=== PATIENT | male | born 1985 | race Caucasian/White ===

== ENCOUNTER 2021-12-13 12:27 | Emergency (ER) | payer OTHER ==
[~2021-12-13] VITALS: Ht 170.2 cm; Wt 79.4 kg
[2021-12-13 12:50] VITALS: BP_SYST 140
[2021-12-13] MEDS ORDERED: HYDR-3917 PO (14:56)
[2021-12-13] MEDS ORDERED: IBUP-1971 PO (14:56)
[2021-12-13] MEDS ORDERED: KETOROLAC TROMETHAMINE 60 MG/2 ML VIAL IM ONE (15:30)
[2021-12-13 15:55] VITALS: BP_SYST 140
== END 2021-12-13 15:55 | disposition home or self-care (01) ==
LOC: SED 12:27
DX: S63.91XA Sprain of unspecified part of right wrist and hand, initial encounter (principal); W19.XXXA Unspecified fall, initial encounter; Y93.89 Activity, other specified; Y92.89 Other specified places as the place of occurrence of the external cause; Y99.8 Other external cause status
CPT/HCPCS: 29125; 73130; 96372; 99283; J1885